=== PATIENT | female | born 2000 | race Caucasian/White ===

== ENCOUNTER 2022-04-26 23:36 | Emergency (ER) | payer OTHER ==
[~2022-04-26] VITALS: Ht 167.6 cm; Wt 42.5 kg
--- OUTSIDE RECORDS SUMMARY | 2022-04-26 23:44 | XMS ---
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 E.D. VISIT COUNT (12 MO.) 1 [facility] Kurtz 1 RAHUL EdmonsonLetty Kurtz TOTAL 2 NOTE: Visits indicate total known visits. ED/UCC VISIT TRACKING (12 MO.) 04/26/2022 23:37 RAHUL Farah [place] TYPE: Emergency COMPLAINT: - MEDCICAL CLEARANCE 04/11/2022 14:23 [facility] TYPE: Emergency DIAGNOSES: - Other specified personal risk factors, not elsewhere classified - Paranoid - Tachycardia - Unspecified psychosis not due to a substance or known physiological condition INPATIENT VISIT TRACKING (12 MO.) No inpatient visits to display in this time frame [id number]
== END 2022-04-27 12:31 | disposition home or self-care (01) ==
LOC: ED 23:36
DX: R45.851 Suicidal ideations (principal); Z20.822 Contact with and (suspected) exposure to COVID-19
CPT/HCPCS: 36415; 80053; 81001; 84703; 85025; 87502; 99284; G0480; U0003

== ENCOUNTER 2022-04-28 14:06 | Emergency (ER) | payer OTHER ==
[~2022-04-28] VITALS: Ht 167.6 cm; Wt 42.5 kg
--- OUTSIDE RECORDS SUMMARY | 2022-04-28 14:14 | XMS ---
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 E.D. VISIT COUNT (12 MO.) 1 [facility] Kurtz 2 RAHUL Brower TOTAL 3 NOTE: Visits indicate total known visits. ED/UCC VISIT TRACKING (12 MO.) 04/28/2022 14:07 RAHUL Farah [place] TYPE: Emergency COMPLAINT: - MEDICAL CLEARANCE 04/26/2022 23:37 RAHUL Farah [place] TYPE: Emergency COMPLAINT: - MEDCICAL CLEARANCE 04/11/2022 14:23 [place] [facility] [place] TYPE: Emergency DIAGNOSES: - Other specified personal risk factors, not elsewhere classified - Paranoid - Tachycardia - Unspecified psychosis not due to a substance or known physiological condition INPATIENT VISIT TRACKING (12 MO.) No inpatient visits to display in this time frame [id number]
--- NOTE | 2022-04-30 14:49 | EKG ---
[facility] [address] [place], [place] [address] Signed Sinus rhythm with short MA Otherwise normal ECG No previous ECGs available Confirmed by MARCELO SHAFER MD ([id number]) on 04/30/2022 2:49:08 PM Electronically Signed By: MARCELO SHAFER MD 04/30/22 1449 PATIENT NAME: JOHN CARMONA Electrocardiogram DATE OF : 4 PHYSICIAN: MARCELO SHAFER MD REPORT #: [id number] REPORT IS CONFIDENTIAL AND NOT TO BE RELEASED WITHOUT AUTHORIZATION
== END 2022-05-02 19:05 | disposition home or self-care (01) ==
LOC: ED 14:06
DX: F29 Unspecified psychosis not due to a substance or known physiological condition (principal); Z20.822 Contact with and (suspected) exposure to COVID-19
CPT/HCPCS: 36415; 80053; 81001; 84443; 84703; 85025; 87502; 93005; 93010; 99285-25; G0480; U0003

== ENCOUNTER 2022-05-03 22:34 | Emergency (ER) | payer OTHER ==
[~2022-05-03] VITALS: Ht 167.6 cm; Wt 42.5 kg
--- OUTSIDE RECORDS SUMMARY | 2022-05-03 22:54 | XMS ---
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 E.D. VISIT COUNT (12 MO.) 1 [facility] Kurtz 3 RAHUL Brower TOTAL 4 NOTE: Visits indicate total known visits. ED/UCC VISIT TRACKING (12 MO.) 05/03/2022 22:35 RAHUL Farah [place] TYPE: Emergency COMPLAINT: - MEDICAL CLEARANCE 04/28/2022 14:07 RAHUL Farah [place] TYPE: Emergency COMPLAINT: - MEDICAL CLEARANCE DIAGNOSES: - Suicidal ideations 04/26/2022 23:37 RAHUL Farah [place] TYPE: Emergency COMPLAINT: - MEDCICAL CLEARANCE DIAGNOSES: - Suicidal ideations - Contact with and (suspected) exposure to COVID-19 04/11/2022 14:23 [facility] [place] TYPE: Emergency DIAGNOSES: - Other specified personal risk factors, not elsewhere classified - Paranoid - Tachycardia - Unspecified psychosis not due to a substance or known physiological condition INPATIENT VISIT TRACKING (12 MO.) No inpatient visits to display in this time frame [id number]
== END 2022-05-04 15:35 | disposition short-term general hospital (02) ==
LOC: ED 22:34
DX: R45.851 Suicidal ideations (principal); Z20.822 Contact with and (suspected) exposure to COVID-19
CPT/HCPCS: 36415; 80053; 81001; 84443; 84703; 85025; 87502; 99285; G0480; U0003